=== PATIENT | female | born 1975 | race Caucasian/White ===

== ENCOUNTER 2022-11-07 07:41 | Outpatient (CLI) | payer BC | END 2022-11-07 07:42 | disposition home or self-care (01) | LOC: ULT 07:41 | PROVIDERS: ATTEND Internal Medicine Cardiovascular Disease | DX: R00.0 Tachycardia, unspecified (principal); Z82.49 Family history of ischemic heart disease and other diseases of the circulatory system | CPT/HCPCS: 76775; 93306 ==